=== PATIENT | male | born 1960 | race Caucasian/White ===

== ENCOUNTER 2018-09-25 06:58 | Day surgery (SDC) | payer BC, SELFPAY ==
[2018-09-25 07:04] VITALS: BP 126/79; PULSE 66; RESP 18; TEMP 35.9; O2SAT 95
[2018-09-25] MEDS: Povidone-Iodine Soln. 118 ML BTL TP (07:29)
[2018-09-25] MEDS: Lactated Ringers 1,000 ML 80 ML IV (07:31)
[2018-09-25] MEDS: ceFAZolin 1 GM/50 ML BAG IVPB (09:49)
[2018-09-25] MEDS: Lidocaine 1% Pres-Free 5 ML VIAL (10:10)
[2018-09-25] MEDS: Bupivacaine 0.5% Pres-Free 30 ML VIAL (10:10)
[2018-09-25] MEDS: Dexamethasone 4 MG/ML VIAL (11:05)
[2018-09-25 11:27] VITALS: BP 84/54; PULSE 68; RESP 18; TEMP 36.6; O2SAT 100
--- NOTE | 2018-09-25 11:30 | W.PM.DSUDISC ---
Discharge Plan Disposition Patient Disposition: HOME Condition: Good Discharge Details Attending Provider: Ricki Mccauley Primary Care Provider: Boom Estrada Discharge Instructions Equipment/Supplies: Non-Weight Bearing Crutches Activity:: Elevate Remove Dressings/Wound Care:: Do Not Remove Shower/Bathe:: Cover Diet:: Normal Diet Discharge Orders Discharge Orders: Discharge Order (Routine); Ordered 09/25/18 Ordered By: Ricki Mccauley DS: Diagnosis Discharge Diagnosis (1) Achilles tendinitis of right lower extremity: Status: Acute (2) Calcific Achilles tendinitis of right lower extremity: Status: Acute
[2018-09-25 11:32] VITALS: BP 94/60; PULSE 67; RESP 15; TEMP 36.6; O2SAT 100
[2018-09-25 11:37] VITALS: BP 92/68; PULSE 67; RESP 16; TEMP 36.6; O2SAT 100
[2018-09-25 11:52] VITALS: BP 111/71; PULSE 67; RESP 15; TEMP 36.5; O2SAT 100
--- NOTE | 2018-09-25 12:26 | ROE_ITS ---
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 POSTOPERATIVE DIAGNOSIS: Same. PROCEDURE: 1. Debridement right Achilles tendon. 2. Moisés's resection. SURGEON: Kat MossPAyana. ANESTHESIA: General endotracheal anesthesia. 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 He is being brought to the OR for resection of the Moisés's deformity, debridement of the Achill es tendon. He understands risks and complications of surgery pertaining to pain, scarring, infection , DVT, wound dehiscence, tendon rupture, ongoing tendinosis, chronic discomfort within the Achilles t endon, potentially requiring revisional procedures; neurologic impingement. All questions have been answered. No promises made to the final outcome of surgery. REPORT OF OPERATION: Cale was brought to the operative suite, placed in the supine position, where t he right lower extremity was prepped and draped in the usual sterile podiatric fashion. Endotracheal general anesthesia was achieved and the patient was rotated onto a prone position. Padding buttress es were all intact. A time-out was performed; the patient was identified; allergies and meds reviewe d; precautions identified. Once again prep was performed in a standard fashion with ChloraPrep. Attention was directed to the right lower extremity, which was exsanguinated and a well-padded thigh tourniquet inflated to 300 mmHg. Attention was directed to the posterior aspect of the right heel, where a 6 cm incision was made, end ing at the insertion of the Achilles tendon. The incision was deepened in controlled depth fashion; hemostasis acquired with electrocautery as needed. The tendon was grossly edematous and injected. A n incision was placed along the lateral aspect where the tendon flares into the soft tissue and I rel eased the lateral edge of the tendon, both bluntly and sharply. I was able to get my finger to the p osterior deep side of the Achilles tendon and significant quantity of calcific infiltration of the Ac hilles tendon is appreciated. I debrided away the exposed portion of tendon that was yellowish-lamb and in very poor condition, dissecting it back until we got to healthier-appearing tissue. I was abl e to excise the calcific masses from the tendon structures with a #15 scalpel, occasionally utilizing a rongeur until all hard tendon was resected. Further thinning of the tendon was then performed wit h a #15 scalpel and rongeur until a more physiologic tendon was noted. The Moisés's deformity was then identified. There was a retrocalcaneal bursal, which was highly inf lamed; this was dissected and excised from the wound. With osteotome and mallet the Moisés's deform ity was resected, and with hand rasp all rough and bony edges rasped smooth. Copious irrigation was performed. Inspection of the wound, Achilles tendon and bone appeared to have achieved the surgical goals. Once again irrigation was performed. The lateral vestige of the tendon and soft tissue was r epaired with simple interrupted suture #2-0 Vicryl. #3-0 Vicryl was then used to repair minor defect s of the peritenon. The subcutaneous layer was then repaired with simple interrupted suture of #4-0 Vicryl and a running subcuticular stitch of #4-0 Monocryl was used to coapt the skin. Four milligram s of dexamethasone phosphate was infused deeply into the wound. Mastisol, half-inch Steri-Strips, ga uze fluff compression dressings were applied, followed by a posterior splint. Please note, the thigh tourniquet was released at sixty-seven minutes with vascularity returning immediately to the lower e xtremity. The patient left the OR with vital signs stable, vascular status intact. Sharp and sponge counts were correct. He will remain non-weightbearing on the right lower extremity. cc: Boom Estrada D.O.
[2018-09-25 12:40] VITALS: BP 119/73; PULSE 59; RESP 16; TEMP 36; O2SAT 98
== END 2018-09-25 13:00 | disposition home or self-care (01) ==
PROVIDERS: PCP Neuromusculoskeletal Medicine & OMM; Visit Provider Podiatrist
PROC: (CPT 28119; principal; 2018-09-25 09:00)
DX: M76.61 Achilles tendinitis, right leg (principal); M65.271 Calcific tendinitis, right ankle and foot; M21.6X1 Other acquired deformities of right foot; M77.31 Calcaneal spur, right foot
CPT/HCPCS: 28119; 27606; J0690; J1100; J1885; J2405